=== PATIENT | male | born 2000 | race Two or more races ===

== ENCOUNTER 2023-08-10 19:01 | Emergency (ER) | payer MEDICAID ==
[~2023-08-10] VITALS: Ht 162.6 cm; Wt 59.6 kg
[2023-08-10] MEDS: DOXYCYCLINE 100MG CAPSULE PO STA (20:29)
[2023-08-10] MEDS ORDERED: DOXY-460 PO (20:32)
[2023-08-10 20:35] VITALS: BP 110/61; PULSE 100; RESP 16; TEMP 98.2; O2SAT 98
== END 2023-08-10 20:38 | disposition home or self-care (01) ==
LOC: ER 19:01
DX: N50.811 Right testicular pain (principal); N50.89 Other specified disorders of the male genital organs
CPT/HCPCS: 99283